=== PATIENT | male | born 1995 | race Caucasian/White ===

== ENCOUNTER 2018-04-04 10:48 | Emergency (ER) | payer BC, OTHER ==
[~2018-04-04] VITALS: Ht 160 cm; Wt 70.3 kg
== END 2018-04-04 14:50 | disposition home or self-care (01) ==
LOC: ED 10:48
DX: S20.212A Contusion of left front wall of thorax, initial encounter (principal); R10.30 Lower abdominal pain, unspecified; V47.5XXA Car driver injured in collision with fixed or stationary object in traffic accident, initial encounter; Y93.I9 Activity, other involving external motion; Y92.488 Other paved roadways as the place of occurrence of the external cause; Y99.8 Other external cause status

== ENCOUNTER → 2021-02-28 | Outpatient (CLI) | payer OTHER | END | disposition home or self-care (01) | LOC: COVID19 15:24 | PROVIDERS: ATTEND Podiatrist Foot & Ankle Surgery | DX: Z11.52 Encounter for screening for COVID-19 (principal) ==